=== PATIENT | female | born 1950 | race Caucasian/White ===

== ENCOUNTER 2017-09-23 11:11 | Outpatient (CLI) | payer MEDICARE, OTHER ==
[~2017-09-23] VITALS: Ht 167.6 cm; Wt 72.3 kg
[~2017-09-23 11:11] MED LIST: AML2.5T PO; BISO1TAB6 PO; CEPH500C PO; ESTR1TAB36 PO; ESTR2TAB PO; GLUC-203 PO; HYDR-3454 PO; HYDR-3812 PO; LOSA50TA36 PO; MULT-618 PO; OMG1KC PO; PRAV40TA2 PO; losartan PO
[2017-09-23] MEDS ORDERED: PRAV20TA3 PO (11:29)
[2017-09-23] MEDS ORDERED: ESTR2TAB PO (11:29)
[2017-09-23] MEDS ORDERED: CALC-823 PO (11:29)
[2017-09-23] MEDS ORDERED: AMLO2.5T PO (11:29)
[2017-09-23] MEDS ORDERED: BISO1TAB6 PO (11:29)
[2017-09-23] MEDS ORDERED: ESTR1TAB36 PO (11:29)
[2017-09-23 11:31] VITALS: BP 125/67
== END 2017-09-23 11:54 | disposition home or self-care (01) ==
LOC: PREOP 11:11
PROVIDERS: ATTEND Podiatrist Foot & Ankle Surgery
DX: Z01.818 Encounter for other preprocedural examination (principal); Z11.2 Encounter for screening for other bacterial diseases; M20.12 Hallux valgus (acquired), left foot; M21.622 Bunionette of left foot
CPT/HCPCS: 87081

== ENCOUNTER 2017-10-18 06:00 | Day surgery (SDC) | payer MEDICARE, OTHER ==
[~2017-10-18] VITALS: Ht 167.6 cm; Wt 72.3 kg
[~2017-10-18 06:00] MED LIST changes: +ACHD5005 PO; +AMLO2.5T PO; +CALC-823 PO; -HYDR-3812 PO; +PRAV20TA3 PO
[2017-10-18] MEDS ORDERED: ceFAZolin 1,000 MG (ANCEF) VIAL ONE (06:15)
[2017-10-18] MEDS ORDERED: NS (IVPB) 50 ML ONE (06:15)
[2017-10-18 06:41] VITALS: BP 108/82
[2017-10-18] MEDS ORDERED: ceFAZolin INJECTION 1,000 MG in NS (IVPB) 50 ML IV ONE (06:45)
[2017-10-18] MEDS: LACTATED RINGERS 1,000 ML IV PRN ×2 (06:46→08:45)
[2017-10-18] MEDS ORDERED: MIDAZOLAM 2 MG/2 ML (VERSED) VIAL ONE (07:05)
[2017-10-18] MEDS ORDERED: fentaNYL INJECTION 250 MCG/5 ML AMP ONE (07:06)
[2017-10-18] MEDS ORDERED: BUPIVACAINE 0.25% 30 ML (SENSORCAINE) VIAL ONE (07:24)
--- NOTE | 2017-10-18 07:43 | Progress Note-Pre Operative ---
Pre-Operative Progress Note H&P Reviewed The H&P was reviewed, patient examined and no changes noted. Date Seen by Provider: Oct 18, 2017 Time Seen by Provider: 07:43 Date H&P Reviewed: Oct 18, 2017 Time H&P Reviewed: 07:43 Pre-Operative Diagnosis: Hallux Valgus, Tailor's Bunion, Hypertrophic 2nd Metatarsal, all left foot MILTON CARREON DPM Oct 18, 2017 7:43 am
[2017-10-18] MEDS ORDERED: LIDOCAINE PF 2% 5 ML (XYLOCAINE) VIAL ONE (08:50)
[2017-10-18] MEDS ORDERED: ONDANSETRON 4 MG/2 ML (SDV) Z0FRAN ONE (08:50)
[2017-10-18] MEDS ORDERED: DEXAMETHASONE 10 MG/ML (DECADRON) 1 ML VIAL ONE ×2 (08:50→10:34)
[2017-10-18] MEDS ORDERED: proPOfol 200 MG/20 ML (DIPRIVAN) VIAL IV ONE (08:50)
[2017-10-18] MEDS ORDERED: SEVOFLURANE (ULTANE) 15 ML INHAL SOLN ONE (08:50)
[2017-10-18] MEDS ORDERED: LACTATED RINGERS 1,000 ML IV SCH (10:56)
--- NOTE | 2017-10-18 10:56 | Progress Note-Post Operative ---
Post-Operative Progess Note Surgeon (s)/Wildlife Biologist (s) Surgeon MILTON CARREON DPM Wildlife Biologist: none Pre-Operative Diagnosis Hallux Valgus, Tailor's Bunion, Hypertrophic 2nd Metatarsal, all left foot Post-Operative Diagnosis Same Procedure & Operative Findings Date of Procedure 10/18/17 Procedure Performed/Findings Modified Lapidus-Alan bunionectomy, Tailors bunionectomy, 2nd metatarsal osteotomy, all left foot Anesthesia Type General Estimated Blood Loss Estimated blood loss (mL): minimal Specimens/Packing Specimens Removed none MILTON CARREON DPM Oct 18, 2017 10:56 am
[2017-10-18] MEDS ORDERED: CEPH500C PO (10:58)
[2017-10-18] MEDS ORDERED: ACHD5005 PO (10:58)
[2017-10-18] MEDS ORDERED: ONDANSETRON 4 MG/2 ML (SDV) Z0FRAN IVP PRN ×2 (11:00→11:15)
[2017-10-18] MEDS ORDERED: HYDROcodone/APAP 5 MG/325 MG (LORTAB) TAB PO PRN (11:00)
[2017-10-18] MEDS ORDERED: morphine INJ 10 MG/ML 1ML (SYR OR VIAL) IVP PRN (11:15)
[2017-10-18] MEDS ORDERED: morphine INJ 4 MG/ML 1 ML (VIAL/SYRINGE) ONE (11:23)
[2017-10-18 11:45] VITALS: BP 148/76
[2017-10-18 12:15] VITALS: BP 146/76
--- NOTE | 2017-10-18 12:41 | Physical Therapy Progress Note ---
Therapy Progress Note Patient had surgery on opposite foot last year and has established FWW, w/c, etc. Both patient and family feel comfortable and declined PT intervention on this date. 1 visit BOSSMAN GOMES PT Oct 18, 2017 12:41
[2017-10-18 12:45] VITALS: BP 144/74
--- NOTE | 2017-10-18 12:57 | Diagnostic Imaging Report ---
INDICATION: Bunionectomy and arthrodesis. COMPARISON: None available. FINDINGS AND IMPRESSION: Multiple fluoroscopic images were obtained during first TMT arthrodesis, great toe bunionectomy, and fifth metatarsal bunionectomy. These demonstrate arthrodesis plate and screw fixation of the first TMT as well as a single cannulated cortical lag screw. A total of 10 seconds or fluoroscopy was utilized for this procedure performed by Dr. Gonzalez. Please see operative report for complete details. Dictated by: Dictated on workstation # [id number]
--- NOTE | 2017-10-18 13:35 | Diagnostic Imaging Report ---
INDICATION: Postop surgery of foot. COMPARISON: None. FINDINGS: Two radiographic views of the left foot were obtained and show postsurgical changes of prior hallux valgus correction. Orthopedic side plate and screws are seen traversing the first metatarsal and medial cuneiform. Osteotomy defect of the fifth distal metatarsal is also noted. Orthopedic screw is seen within the distal end of the second metatarsal. No unexpected radiopaque foreign bodies are seen. No acute fracture or dislocation is identified. IMPRESSION: 1. Postsurgical changes of the left foot as described above. No unexpected radiopaque foreign bodies. Dictated by: Dictated on workstation # [id number]
[2017-10-18 13:45] VITALS: BP 144/74
--- NOTE | 2017-10-18 20:52 | OPERATIVE REPORT ---
DATE OF SERVICE: 10/18/2017 SURGEON: Damaris Carreon DPM PREOPERATIVE DIAGNOSES: 1. Hallux abductovalgus with metatarsal primus varus, left foot. 2. Tailor's bunion, left foot. 3. Hypertrophic second metatarsal left foot. POSTOPERATIVE DIAGNOSES: 1. Hallux abductovalgus with metatarsal primus varus, left foot. 2. Tailor's bunion, left foot. 3. Hypertrophic second metatarsal left foot. PROCEDURE: 1. Modified Lapidus Alan bunionectomy, left. 2. Tailor's bunionectomy with fifth metatarsal osteotomy. 3. Second metatarsal osteotomy with screw fixation, left. WOUND CLASS: Clean. ANESTHESIA: General. HEMOSTASIS: Pneumatic thigh tourniquet at 250 mmHg. INDICATIONS: This 67-year-old female presents complaining of a painful left foot. Conservative therapy has met with unsatisfactory results and the patient is agreeable to surgical intervention after risks and complications were discussed at length. No guarantees were extended to the patient and she is willing to proceed. DESCRIPTION OF PROCEDURE: The patient was brought back to the operating table, placed in secure supine position. A general anesthetic was then induced. Appropriate timeout was performed. Pneumatic thigh tourniquet was placed on the left lower extremity over several layers of padding. The left foot was then prepped and draped in normal sterile manner. The left foot was then elevated, allowed to exsanguinate after which the tourniquet was inflated to 250 mmHg. Attention was then directed to the dorsal aspect of the left first metatarsal cuneiform joint where an approximately 5 cm longitudinal linear incision was created. The incision was deepened in the same plane with great care to identify and retract all vital neurovascular structures. Only necessary blood vessels were cauterized as encountered. The incision was deepened down to the capsular tissue where a longitudinal capsulotomy provided exposure to the first metatarsal medial cuneiform joint. Next, the articular cartilage was resected to the base of the first metatarsal and distal medial cuneiform. The bone cut was perpendicular to the long axis of the first metatarsal, to the medial cuneiform. It was perpendicular to the long axis of the second metatarsal. Once the articular cartilage was removed, excellent bony apposition was appreciated at this time. Temporary K wire fixation was applied and confirmed reduction of bunion deformity with intraoperative C-arm. Next, plate and screws were then applied utilizing a standard Lapidus plate for the gorilla system. The proximal screw was a 2.7 locking screw, 15 and 20 mm of length. The interfrag compression screw was a 3.5 of 38 mm of length. The distal screws were 2.7 locking screws of 18 and 16 mm of length and a nonlocking screw of 14 mm length. Excellent bony apposition and fixation was appreciated at this time, confirmed with intraoperative C-arm. The wound was flushed with copious amounts of normal saline. Attention was then directed to the dorsal aspect of the first metatarsophalangeal joint where a 5 cm longitudinal linear incision was created. The incision was deepened in the same plane with great care to identify and retract all vital neurovascular structures. Only the necessary blood vessels were cauterized as encountered. The incision was deepened down to the capsular tissue and a longitudinal capsulotomy was performed exposing the medial eminence to the first metatarsal head, which was resected utilizing a power sagittal saw. The wound was flushed after which plantar pressure was then applied noting there is retained lateral deviation to the hallux. Blunt dissection was carried out into the first intermetatarsal space where a lateral capsulorrhaphy was performed as well as a release of the conjoint tendon of the adductor hallucis and a release of the fibular sesamoidal ligament. There remained some lateral deviation. An Alan type osteotomy was then performed. Subperiosteal dissection was carried out to the diaphysis of the proximal phalanx where a wedge of bone was resected with the base medial and the lateral cortices held intact. Once this wedge of bone was resected, 2 co pilot holes were created to the dorsal medial aspect of the osteotomy with a 28-gauge monofilm wire, which was passed through these areas securing the osteotomy in a closed position. Excellent bony apposition and fixation was appreciated at this time. Attention was then directed to the dorsal aspect of the left second metatarsophalangeal joint where a 4 cm longitudinal linear incision was created. The incision was deepened down to the extensor davidson overlying the metatarsophalangeal joint where an incision was made longitudinally medial to the extensor digitorum longus tendon. This exposed the hypertrophic head of the second metatarsal. A Tanner type osteotomy was then performed. A power sagittal saw was utilized to create the osteotomy and the capital fragment was translocated proximally and fixated in its corrected position utilizing a 2.0 snap-off screw of 10 mm of length. Excellent bony apposition and fixation was appreciated at this time. The head of the second metatarsal was further contoured and smoothed with a rongeur and hand rasp. The wound was flushed with copious amounts of normal saline. Attention was then directed to the left fifth metatarsophalangeal joint where a 4 cm longitudinal linear incision was created. The incision was deepened in the same plane with great care to identify and retract all vital neurovascular structures. Only necessary blood vessels were cauterized as encountered. The incision was deepened down to the capsular tissue where a longitudinal capsulotomy was performed. The lateral eminence to the fifth metatarsal head was resected with a power sagittal saw. A power sagittal saw was also utilized to create a Chevron type osteotomy from lateral to medial at the surgical neck of the fifth metatarsal. The capital fragment was translocated medially and fixated in its corrected position with a 0.045 threaded K-wire driven from proximal dorsal to plantar distal across the osteotomy. The K-wire was cut flush with the dorsal aspect of the fifth metatarsal. The head of the fifth metatarsal was further contoured and smoothed with the power sagittal saw and power bur. The wounds were flushed once again with copious amounts of normal saline. Closure was then performed in layers. Deep closure was performed with 3-0 Vicryl, superficial with 4-0 Vicryl, skin closed with 4-0 Prolene in a horizontal mattress type stitch to all four incisions. Postoperative injection consisted of 20 mL of 0.25% Marcaine injected in a local infusion to the surgical site followed by 10 mg dexamethasone into the first intermetatarsal space. Postoperative dressing consisted of Betadine soaked Adaptic, sterile 4 x 4's, sterile Kerlix, all secured with a Coban wrap. The patient tolerated anesthesia and procedure well, was transported from the operating room to the recovery area with vital signs stable and vascular status intact to all digits of the left foot. Postoperative instructions were dispensed to the patient to be absolutely nonweightbearing left foot. She was given a prescription for Keflex and Vicodin. She is to follow up in my office in 10 days' period of time or sooner if necessary. Job ID: [id number] DocumentID: [id number] Dictated Date: 10/18/2017 11:10:24 Treater Date: 10/18/2017 20:51:31 Dictated By: DAMARIS CARREON DPM
== END 2017-10-18 13:45 | disposition home or self-care (01) ==
LOC: SDC 06:00
PROVIDERS: ATTEND Podiatrist Foot & Ankle Surgery
DX: M20.12 Hallux valgus (acquired), left foot (principal); M21.621 Bunionette of right foot; M89.372 Hypertrophy of bone, left ankle and foot; I10 Essential (primary) hypertension; E78.2 Mixed hyperlipidemia; Z79.899 Other long term (current) drug therapy
CPT/HCPCS: 73620

== ENCOUNTER → 2020-01-08 | Outpatient (CLI) | payer MEDICARE, OTHER ==
[~2020-01-08] MED LIST changes: -AMLO2.5T PO; +AMLO2.5T4 PO; +BISO-3 PO; -LOSA50TA36 PO; +LOSA50TA63 PO
--- NOTE | 2020-01-08 12:06 | Diagnostic Imaging Report ---
INDICATION: Chest nodule, palpable abnormality COMPARISON: None available TECHNIQUE: Targeted ultrasound of the right upper chest was performed on 01/08/2020 FINDINGS: No suspicious cystic or solid mass lesion. No focal fluid collection. No significant skin thickening. IMPRESSION: Unremarkable examination. In particular, no sonographic abnormality to correspond to the palpable abnormality within the right upper chest. If there remains clinical concern for this region, then further evaluation with MRI with contrast could be considered. Dictated by: Dictated on workstation # [id number]
== END ==
LOC: RAD 10:24
PROVIDERS: ATTEND Nurse Practitioner Family
DX: R22.2 Localized swelling, mass and lump, trunk (principal)
CPT/HCPCS: 76604

== ENCOUNTER 2020-11-02 05:28 | Outpatient (RCR) | payer MEDICARE, OTHER ==
[~2020-11-02] VITALS: Ht 169 cm; Wt 66.0 kg
[~2020-11-02 05:28] MED LIST changes: +MULT-1136 PO
== END 2020-11-02 14:16 | disposition home or self-care (01) ==
LOC: PREOP 05:28
PROVIDERS: ATTEND Internal Medicine
DX: Z01.812 Encounter for preprocedural laboratory examination (principal); Z12.11 Encounter for screening for malignant neoplasm of colon; Z20.822 Contact with and (suspected) exposure to COVID-19
CPT/HCPCS: 87635

== ENCOUNTER 2020-11-04 07:25 | Day surgery (SDC) | payer MEDICARE, OTHER ==
--- NOTE | 2020-10-29 07:27 | HISTORY AND PHYSICAL ---
DATE OF SERVICE: COLONOSCOPY HISTORY AND PHYSICAL DATE OF ADMISSION: 11/04/2020 HISTORY OF PRESENT ILLNESS: The patient is a 70-year-old white female referred by Dr. Hernandez for screening colonoscopy. I performed her second colonoscopy 10 years ago, at which time no evidence for neoplasia was identified with no other significant colonic abnormalities being noted. The patient reports no change in bowel habit. Denies bright red blood per rectum or melena and reports stable weights. PAST MEDICAL HISTORY: Significant for hypertension, hyperlipidemia with no known history for cardiovascular or cerebrovascular disease. PAST SURGICAL HISTORY: Significant for hysterectomy over 20 years ago with removal of a benign ovarian tumor with apparent bilateral salpingo-oophorectomy. FAMILY HISTORY: She is not aware of any family history for colon cancer or GI tract malignancy. Her mother did pass away at the age of 83 and had history of colon polyps reportedly benign. PHYSICAL EXAMINATION: GENERAL: Reveals a white female appeared to be in no acute distress. VITAL SIGNS: Blood pressure 130/72, weight 151 pounds, unchanged from her office weight 10 years ago. NECK: Revealed no JVD, adenopathy or bruits. CHEST: Clear to auscultation. CARDIOVASCULAR: Reveals a regular rate and rhythm without murmur, S3 or S4. ABDOMEN: Soft, supple without mass, organomegaly or tenderness. EXTREMITIES: Reveal no cyanosis, clubbing or edema. ASSESSMENT AND PLAN: The patient will be set up for screening colonoscopy. She had difficulty with her prep in the past and requested MiraLax. I discussed the importance of drinking it as quickly as possible and we will split the dose into two aliquots given the day before as we plan on doing the patient under anesthesia as she reports increased issues with bowel sensitivity and request to be not completely out for the procedure. She is to abstain from aspirin and nonsteroidal medications in the interim. Thank you for the referral of this pleasant lady. Job ID: [id number] DocumentID: [id number] Dictated Date: 10/27/2020 11:13:33 Work Measurement Engineer Date: 10/27/2020 11:32:39 Dictated By: RUTH RING MD
[~2020-11-04] VITALS: Ht 169 cm; Wt 66.0 kg
[2020-11-04] MEDS ORDERED: LACTATED RINGERS 1,000 ML IV ONE (07:40)
[2020-11-04] MEDS ORDERED: LACTATED RINGERS 1,000 ML IV STA (07:40)
[2020-11-04] MEDS ORDERED: LIDOCAINE JELLY 2% 6 ML SYRINGE MM PRN (07:45)
[2020-11-04 07:56] VITALS: BP 132/83
--- NOTE | 2020-11-04 08:11 | Pre-Op Note & Conscious Sedat ---
Pre-Operative Progress Note H&P Reviewed The H&P was reviewed, patient examined and no changes noted. Date H&P Reviewed: Nov 04, 2020 Time H&P Reviewed: 08:11 Conscious Sedation Pre-Proced ASA Score 2 For ASA 3 and 4: Consider anesthesia and medical clearance. Also, for patients with a history of failed moderate sedation consider anesthesia. Airway Lungs Heart ASA score ASA 1: a normal healthy patient ASA 2: a patient with a mild systemic disease (mid diabetes, controlled hypertension, obesity ASA 3: a patient with a severe systemic disease that limits activity (angina, COPD, prior Myocardial infarction) ASA 4: a patient with an incapacitating disease that is a constant threat to life (CHF, renal failure) ASA 5: a moribund patient not expected to survive 24 hrs. (ruptured aneurysm) ASA 6: a declared brain- patient whose organs are being harvested. For emergent operations, add the letter E after the classification Mallampati Classification Grade 2 Sedation Plan Analgesia, Amnesia, Plan communicated to team members, Discussed options with patient/fam, Discussed risks with patient/fam The patient is an appropriate candidate to undergo the planned procedure, sedation, and anesthesia. The patient immediately re-assessed prior to indication. RUTH RING MD Nov 04, 2020 08:11
[2020-11-04] MEDS ORDERED: PROPOFOL INJECTION 50 ML IV ONE (08:30)
[2020-11-04] MEDS ORDERED: MIDAZOLAM 2 MG/2 ML (VERSED) VIAL ONE (08:30)
[2020-11-04 09:15] VITALS: BP 76/46
[2020-11-04 09:20] VITALS: BP 87/53
[2020-11-04 09:25] VITALS: BP 109/61
[2020-11-04 10:10] VITALS: BP 124/66
[2020-11-04 10:48] VITALS: BP 124/66
--- NOTE | 2020-11-04 11:20 | Anesthesia-General Post-Op ---
MAC Patient Condition Mental Status/LOC: Same as Preop Cardiovascular: Satisfactory Nausea/Vomiting: Absent Respiratory: Satisfactory Pain: Controlled Complications: Absent Post Op Complications Complications None Follow Up Care/Instructions Patient Instructions None needed. Anesthesiology Discharge Order Discharge Order Patient is doing well, no complaints, stable vital signs, no apparent adverse anesthesia problems. No complications reported per nursing. GAVIN RODRIGUEZ CRNA Nov 04, 2020 11:20
--- NOTE | 2020-11-04 13:32 | OPERATIVE REPORT ---
DATE OF SERVICE: COLONOSCOPY SUMMARY INDICATION FOR THE PROCEDURE: Screening colonoscopy. DESCRIPTION OF PROCEDURE: The patient was placed in the left lateral decubitus position. Prior to undergoing colonoscopy, digital rectal evaluation was performed. Anal sphincter tone was normal and the perianal reflexes intact. No abnormalities were noted on digital inspection of anal canal or distal rectal vault. The colonoscope was then inserted into the rectum and under direct visualization advanced to cecum. The cecum was identified by identification of the ileocecal valve and cecal strap. Photographic documentation was obtained. Careful inspection was made as the colonoscope withdrawn. The quality of prep was good. FINDINGS: There was no evidence for internal or external hemorrhoids and the rectum was unremarkable. Present in the mid sigmoid colon was a diminutive 4 mm sessile polyp that was photographed and biopsied and ablated with no subsequent blood loss. Moderate diverticular disease was noted in the sigmoid colon. Several ascending colonic diverticulum were noted as well without evidence for diverticulitis. There was moderate haustral hypertrophy as well. The descending colon, splenic flexure, and transverse colon were unremarkable. The ascending colon other than several diverticulum was unremarkable as was the cecum. ASSESSMENT: One diminutive polyp was removed from the mid sigmoid colon as long as there are no surprise on histopathology report may considering this patient's age and moderate diverticular disease as long as there is no family history for colon cancer, we would not advocate future screening colonoscopy. I thank you for the referral of this pleasant lady. Job ID: [id number] DocumentID: [id number] Dictated Date: 11/04/2020 09:21:29 Cook Ice Cream Date: 11/04/2020 13:31:19 Dictated By: RUTH RING MD
== END 2020-11-04 10:48 | disposition home or self-care (01) ==
LOC: ENDO 07:25
PROVIDERS: ATTEND Internal Medicine
DX: Z12.11 Encounter for screening for malignant neoplasm of colon (principal); D12.5 Benign neoplasm of sigmoid colon; K57.30 Diverticulosis of large intestine without perforation or abscess without bleeding; I10 Essential (primary) hypertension; E78.5 Hyperlipidemia, unspecified; Z79.899 Other long term (current) drug therapy; Z83.71 Family history of colonic polyps
CPT/HCPCS: 88305

== ENCOUNTER 2020-12-05 20:48 | Emergency (ER) | payer MEDICARE, OTHER ==
[~2020-12-05] VITALS: Ht 167.7 cm; Wt 68.0 kg
[2020-12-05] MEDS ORDERED: cloNIDine 0.1 MG (CATAPRES) TAB ONE (21:09)
[2020-12-05] MEDS ORDERED: cloNIDine 0.1 MG (CATAPRES) TAB PO ONE ×2 (21:15→22:15)
--- NOTE | 2020-12-05 21:19 | ED Cardiac General ---
History of Present Illness General Chief Complaint: Cardiac/General Problems Stated Complaint: ELEV BP 185/87 Source: patient Exam Limitations: no limitations History of Present Illness Date Seen by Provider: Dec 05, 2020 Time Seen by Provider: 21:17 Initial Comments To ER by private vehicle with reports of high blood pressure. She checked her blood pressure this evening and found it to be 116 systolic. She decided not to take her evening dose of blood pressure medication because she did not want to drop her blood pressure too low. About an hour later she then began to have some funny sensations in her head and chest. She took her blood pressure and it was 159. She took her blood pressure medication at 7 PM. Shortly after that her blood pressure sara to 179. Just before arrival here it was 189systolic. She also had some mumbling incoherent speech, general weakness and shakiness according to the . Timing/Duration: changing over time Severity: moderate Prior CP/Workup: no prior chest pain NTG SL SENIOR INFORMATICA DEVELOPER: No ASA po SENIOR INFORMATICA DEVELOPER: No Allergies and Home Medications Allergies Coded Allergies: No Known Drug Allergies (Unverified , 09/23/17) Home Medications Amlodipine Besylate 2.5 Mg Tablet, 2.5 MG PO DAILY, (Reported) Bisoprolol Fumarate/Hctz 1 Each Tablet, 1 EACH PO DAILY, (Reported) Calcium Carbonate 500 Mg Tablet, 500 MG PO DAILY, (Reported) Estradiol 2 Mg Tablet, 2 MG PO DAILY, (Reported) Losartan Potassium 50 Mg Tablet, 50 MG PO DAILY, (Reported) Multivitamin 1 Each Tablet, 1 EACH PO DAILY, (Reported) Kane 3 Polyunsat Fatty Acids 1,000 Mg Cap, 1,000 MG PO DAILY, (Reported) Pravastatin Sodium 20 Mg Tablet, 20 MG PO DAILY, (Reported) Patient Home Medication List Home Medication List Reviewed: Yes Review of Systems Review of Systems Constitutional: see HPI EENTM: No Symptoms Reported Respiratory: No Symptoms Reported Cardiovascular: See HPI; Denies Chest Pain, Denies Edema Gastrointestinal: See HPI Genitourinary: No Symptoms Reported Musculoskeletal: no symptoms reported Skin: no symptoms reported Psychiatric/Neurological: No Symptoms Reported Endocrine: No Symptoms Reported Past Qnfkupo-Jeqbew-Tjwudl Hx Patient Social History 2nd Hand Smoke Exposure: No Recent Hopitalizations: No Immunizations Up To Date Tetanus Booster (TDap): Unknown Date of Pneumonia Vaccine: Jul 30, 2016 Date of Influenza Vaccine: Jul 29, 2020 Seasonal Allergies Seasonal Allergies: No Past Medical History Surgeries: Yes (RIGHT FOOT, LEFT FOOT) Gallbladder, Hysterectomy, Tubal Ligation Respiratory: No Cardiac: Yes High Cholesterol, Hypertension Neurological: No Reproductive Disorders: No 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 7.0oz. [id number]; 23.10 BMI Method:Stated General Appearance: No Apparent Distress, WD/WN, Anxious Neck: Full Range of Motion, Normal Inspection Respiratory: Lungs Clear, Normal Breath Sounds, No Accessory Muscle Use, No Respiratory Distress Cardiovascular: Regular Rate, Rhythm, Normal Peripheral Pulses Gastrointestinal: Normal Bowel Sounds, Non Tender, Soft Extremity: Normal Capillary Refill, Normal Inspection Neurologic/Psychiatric: Alert, Oriented x3 Skin: Normal Color, Warm/Dry, Other (There is a circular area of slight erythema, scaling beneath the right breast. Not a vesicular rash, does not appear zoster. Appears like an intertrigo/candidal infection.) Progress/Results/Core Measures Results/Orders Lab Results Laboratory Tests Test 12/05/20 21:00 12/05/20 21:05 Range/Units Sodium Level 140 135-145 MMOL/L Potassium Level 3.5 L 3.6-5.0 MMOL/L Chloride Level 104 98-107 MMOL/L Carbon Dioxide Level 22 21-32 MMOL/L Anion Gap 14 5-14 MMOL/L Blood Urea Nitrogen 20 H 7-18 MG/DL Creatinine 0.90 0.60-1.30 MG/DL Estimat Glomerular Filtration Rate > 60 BUN/Creatinine Ratio 22 Glucose Level 204 H 70-105 MG/DL Calcium Level 9.1 8.5-10.1 MG/DL Corrected Calcium 8.8 8.5-10.1 MG/DL Total Bilirubin 0.3 0.1-1.0 MG/DL Aspartate Amino Transf (AST/SGOT) 18 5-34 U/L Alanine Aminotransferase (ALT/SGPT) 24 0-55 U/L Alkaline Phosphatase 82 40-136 U/L Troponin I < 0.028 <0.028 NG/ML Total Protein 7.7 6.4-8.2 GM/DL Albumin 4.4 3.2-4.5 GM/DL White Blood Count 7.7 4.3-11.0 10^3/uL Red Blood Count 5.00 3.80-5.11 10^6/uL Hemoglobin 15.5 11.5-16.0 g/dL Hematocrit 46 35-52 % Mean Corpuscular Volume 92 80-99 fL Mean Corpuscular Hemoglobin 31 25-34 pg Mean Corpuscular Hemoglobin Concent 34 32-36 g/dL Red Cell Distribution Width 14.0 10.0-14.5 % Platelet Count 294 130-400 10^3/uL Mean Platelet Volume 9.1 9.0-12.2 fL Immature Granulocyte % (Auto) 0 % Neutrophils (%) (Auto) 59 42-75 % Lymphocytes (%) (Auto) 32 12-44 % Monocytes (%) (Auto) 8 0-12 % Eosinophils (%) (Auto) 1 0-10 % Basophils (%) (Auto) 1 0-10 % Neutrophils # (Auto) 4.5 1.8-7.8 10^3/uL Lymphocytes # (Auto) 2.5 1.0-4.0 10^3/uL Monocytes # (Auto) 0.6 0.0-1.0 10^3/uL Eosinophils # (Auto) 0.0 0.0-0.3 10^3/uL Basophils # (Auto) 0.0 0.0-0.1 10^3/uL Immature Granulocyte # (Auto) 0.0 0.0-0.1 10^3/uL My Orders Orders - MELLY PEREZ APRN Clonidine Tablet (Catapres Tablet) (12/05/20 21:09) Troponin I (12/05/20 21:14) Ekg Tracing (12/05/20 21:14) Cbc With Automated Diff (12/05/20 21:14) Comprehensive Metabolic Panel (12/05/20 21:14) Clonidine Tablet (Catapres Tablet) (12/05/20 21:15) Potassium Chloride (Tablet) (K Dur Table (12/05/20 22:00) Magnesium Oxide Tablet (Mag Ox Tablet) (12/05/20 22:00) Betamethasone/Clotrimazole Crm (Lotrison (12/06/20 09:00) Medications Given in ED Current Medications Medications Dose Ordered Sig/Nicolasa Route Start Time Stop Time Status Last Admin Dose Admin Clonidine HCl 0.1 mg ONCE ONCE PO 12/05/20 21:15 12/05/20 21:17 DC 12/05/20 21:23 0.1 MG Vital Signs/I&O 12/05/20 20:55 Temp 36.7 Pulse 74 Resp 18 B/P (MAP) 157/97 (117) Pulse Ox 96 O2 Delivery Room Air Departure Impression Primary Impression: Labile hypertension Disposition: HOME, SELF-CARE Condition: Stable Departure-Patient Inst. Decision time for Depature: 21:45 Referrals: PIETRO HERNANDEZ MD (PCP/Family) Primary Care Physician Patient Instructions: High Blood Pressure (DC) Add. Discharge Instructions: 1. Call Dr Hernandez tomorrow to make an appointment to be seen. Return to ER for any worsening. All discharge instructions reviewed with patient and/or family. Voiced unde rstanding. Copy Copies To 1: PIETRO HERNANDEZ MD, PETER J APRN Dec 05, 2020 21:19
[2020-12-05 21:28] LABS: BASOPHILS % (AUTO) 1 % (0-10); EOSINOPHILS % (AUTO) 1 % (0-10); HEMATOCRIT 46 % (35-52); HEMOGLOBIN 15.5 g/dL (11.5-16.0); LYMPHOCYTES # (AUTO) 2.5 10^3/uL (1.0-4.0); LYMPHOCYTES % (AUTO) 32 % (12-44); MEAN CORPUSCULAR HEMOGLOBIN 31 pg (25-34); MEAN CORPUSCULAR HGB CONC 34 g/dL (32-36); MEAN CORPUSCULAR VOLUME 92 fL (80-99); MEAN PLATELET VOLUME 9.1 fL (9.0-12.2); MONOCYTES # (AUTO) 0.6 10^3/uL (0.0-1.0); MONOCYTES % (AUTO) 8 % (0-12); NEUTROPHILS # (AUTO) 4.5 10^3/uL (1.8-7.8); NEUTROPHILS % (AUTO) 59 % (42-75); PLATELET COUNT 294 10^3/uL (130-400); WHITE BLOOD COUNT 7.7 10^3/uL (4.3-11.0)
[2020-12-05 21:33] LABS: ALBUMIN 4.4 GM/DL (3.2-4.5); CHLORIDE 104 MMOL/L (98-107); POTASSIUM 3.5 MMOL/L (3.6-5.0); SODIUM 140 MMOL/L (135-145)
[2020-12-05 21:34] LABS: CALCIUM 9.1 MG/DL (8.5-10.1)
[2020-12-05 21:35] LABS: GLUCOSE 204 MG/DL (70-105)
[2020-12-05 21:36] LABS: TOTAL PROTEIN 7.7 GM/DL (6.4-8.2)
[2020-12-05 21:37] LABS: CARBON DIOXIDE 22 MMOL/L (21-32)
[2020-12-05 21:44] LABS: ALANINE AMINOTRANSFERASE 24 U/L (0-55); ALKALINE PHOSPHATASE 82 U/L (40-136); BILIRUBIN,TOTAL 0.3 MG/DL (0.1-1.0); BUN/CREATININE RATIO 22; GFR ESTIMATED > 60
[2020-12-05] MEDS ORDERED: KCL 20 MEQ TAB (K-DUR) PO ONE (22:00)
[2020-12-05] MEDS ORDERED: MAGNESIUM OXIDE (MAG-OX)400 MG TAB PO ONE (22:00)
[2020-12-05] MEDS ORDERED: BETAMETHASONE/CLOTRIM CREAM (LOTRISONE) 45 GM TP ONE (22:02)
[2020-12-05 22:22] VITALS: BP 144/79
[2020-12-06] MEDS ORDERED: BETAMETHASONE/CLOTRIM CREAM (LOTRISONE) 45 GM TP SCH (09:00)
== END 2020-12-05 22:22 | disposition home or self-care (01) ==
LOC: EDUNIT# 20:48 → ER 20:50
DX: I10 Essential (primary) hypertension (principal); F41.9 Anxiety disorder, unspecified; E78.00 Pure hypercholesterolemia, unspecified
CPT/HCPCS: 36415; 80053; 84484; 85025; 93005

== ENCOUNTER 2020-12-06 21:03 | Emergency (ER) | payer MEDICARE, OTHER ==
[~2020-12-06] VITALS: Ht 162.6 cm; Wt 68.0 kg
[2020-12-06] MEDS ORDERED: ONDANSETRON 4 MG (ZOFRAN) ORAL DISSOLVE TAB ONE (21:16)
--- NOTE | 2020-12-06 21:37 | ED Chest Pain ---
General Chief Complaint: Cardiac/General Problems Stated Complaint: HIGH BLOOD PRESSURE Source: patient Exam Limitations: no limitations History of Present Illness Date Seen by Provider: Dec 06, 2020 Time Seen by Provider: 21:11 Initial Comments Patient presents ER with her significant other and chief complaint that again tonight about 3 hours prior to arrival she started feeling queasy with a uneasy feeling in her epigastric region as well as some nausea but no vomiting. She had an episode of diarrhea earlier tonight and one yesterday. She had the same symptoms yesterday and presented to the ER and had a cardiac work-up with EKG and labs that was unremarkable and told to go home with clonidine. She already has 4 different medications for blood pressure none of which are maxed out. She says she is been taking them. What concerned her is she saw her blood pressure was elevated 190 systolic over 110 diastolic. This happened again tonight so per the ER practitioner's instructions from last night she took a dose of clonidine 0.1 mg and by the time she arrived here approximately 1 hour later she says her symptoms are resolving. She is not having any fever or sick contacts. No recent travel. No personal history of coronary disease but she does have high blood pressure. She does not smoke or use stimulant medications. No significant familial risk factors. Her mother and father both had extensive coronary disease that presented in their 70s. She does take a statin for hyperlipidemia and denies a history of diabetes. Allergies and Home Medications Allergies Coded Allergies: No Known Drug Allergies (Unverified , 09/23/17) Home Medications Amlodipine Besylate 2.5 Mg Tablet, 2.5 MG PO DAILY, (Reported) Bisoprolol Fumarate/Hctz 1 Each Tablet, 1 EACH PO DAILY, (Reported) Calcium Carbonate 500 Mg Tablet, 500 MG PO DAILY, (Reported) Estradiol 2 Mg Tablet, 2 MG PO DAILY, (Reported) Losartan Potassium 50 Mg Tablet, 50 MG PO DAILY, (Reported) Multivitamin 1 Each Tablet, 1 EACH PO DAILY, (Reported) [place] 3 Polyunsat Fatty Acids 1,000 Mg Cap, 1,000 MG PO DAILY, (Reported) Pravastatin Sodium 20 Mg Tablet, 20 MG PO DAILY, (Reported) Patient Home Medication List Home Medication List Reviewed: Yes Review of Systems Review of Systems Constitutional: No chills, No fever EENTM: No Blurred Vision, No Double Vision Respiratory: Denies Cough, Denies Shortness of Air Cardiovascular: See HPI, Chest Pain, Edema Gastrointestinal: Denies Abdomen Distended, Denies Abdominal Pain Genitourinary: Denies Burning, Denies Discharge Musculoskeletal: No back pain, No joint pain All Other Systems Reviewed Negative Unless Noted: Yes Past Ftencfl-Wkmvjj-Polnbt Hx Patient Social History Alcohol Use: Denies Use Smoking Status: Never a Smoker 2nd Hand Smoke Exposure: No Recent Hopitalizations: No Immunizations Up To Date Tetanus Booster (TDap): Unknown Date of Pneumonia Vaccine: Jul 30, 2016 Date of Influenza Vaccine: Jul 29, 2020 Seasonal Allergies Seasonal Allergies: No Past Medical History Surgeries: Yes (RIGHT FOOT, LEFT FOOT) Gallbladder, Hysterectomy, Tubal Ligation Respiratory: No Cardiac: Yes High Cholesterol, Hypertension Neurological: No Reproductive Disorders: No 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 7.0oz. 72.045471op; 24.00 BMI Method:Stated General Appearance: No Apparent Distress, WD/WN HEENT: PERRL/EOMI, Pharynx Normal, Moist Mucous Membranes Neck: Full Range of Motion, Normal Inspection Respiratory: Lungs Clear, Normal Breath Sounds, No Accessory Muscle Use, No Respiratory Distress Cardiovascular: Regular Rate, Rhythm, No Edema Gastrointestinal: Normal Bowel Sounds, No Organomegaly, Non Tender, Soft Extremity: Normal Capillary Refill, Normal Inspection, No Pedal Edema Neurologic/Psychiatric: Alert, Oriented x3 Skin: Normal Color, Warm/Dry Progress/Results/Core Measures Results/Orders Lab Results Laboratory Tests Test 12/06/20 21:50 12/06/20 23:45 Range/Units White Blood Count 9.2 4.3-11.0 10^3/uL Red Blood Count 4.82 3.80-5.11 10^6/uL Hemoglobin 14.7 11.5-16.0 g/dL Hematocrit 45 35-52 % Mean Corpuscular Volume 93 80-99 fL Mean Corpuscular Hemoglobin 31 25-34 pg Mean Corpuscular Hemoglobin Concent 33 32-36 g/dL Red Cell Distribution Width 13.9 10.0-14.5 % Platelet Count 273 130-400 10^3/uL Mean Platelet Volume 9.0 9.0-12.2 fL Immature Granulocyte % (Auto) 0 % Neutrophils (%) (Auto) 65 42-75 % Lymphocytes (%) (Auto) 24 12-44 % Monocytes (%) (Auto) 9 0-12 % Eosinophils (%) (Auto) 0 0-10 % Basophils (%) (Auto) 1 0-10 % Neutrophils # (Auto) 6.0 1.8-7.8 10^3/uL Lymphocytes # (Auto) 2.2 1.0-4.0 10^3/uL Monocytes # (Auto) 0.8 0.0-1.0 10^3/uL Eosinophils # (Auto) 0.0 0.0-0.3 10^3/uL Basophils # (Auto) 0.1 0.0-0.1 10^3/uL Immature Granulocyte # (Auto) 0.0 0.0-0.1 10^3/uL Prothrombin Time 13.1 12.2-14.7 SEC INR Comment 1.0 0.8-1.4 Activated Partial Thromboplast Time 31 24-35 SEC Sodium Level 141 135-145 MMOL/L Potassium Level 4.3 3.6-5.0 MMOL/L Chloride Level 106 98-107 MMOL/L Carbon Dioxide Level 21 21-32 MMOL/L Anion Gap 14 5-14 MMOL/L Blood Urea Nitrogen 18 7-18 MG/DL Creatinine 0.81 0.60-1.30 MG/DL Estimat Glomerular Filtration Rate > 60 BUN/Creatinine Ratio 22 Glucose Level 130 H 70-105 MG/DL Calcium Level 9.1 8.5-10.1 MG/DL Corrected Calcium 8.9 8.5-10.1 MG/DL Magnesium Level 1.9 1.6-2.4 MG/DL Total Bilirubin 0.4 0.1-1.0 MG/DL Aspartate Amino Transf (AST/SGOT) 19 5-34 U/L Alanine Aminotransferase (ALT/SGPT) 23 0-55 U/L Alkaline Phosphatase 74 40-136 U/L Myoglobin 25.6 10.0-92.0 NG/ML Troponin I < 0.028 < 0.028 <0.028 NG/ML Total Protein 7.4 6.4-8.2 GM/DL Albumin 4.3 3.2-4.5 GM/DL My Orders Orders - KALIN JIMENEZ Ondansetron Oral Dissolve Tab (Zofran (12/06/20 21:16) Cbc With Automated Diff (12/06/20 21:34) Magnesium (12/06/20 21:34) Chest 1 View, Ap/Pa Only (12/06/20 21:34) Ekg Tracing (12/06/20 21:34) Comprehensive Metabolic Panel (12/06/20 21:34) Myoglobin Serum (12/06/20 21:34) Protime With Inr (12/06/20 21:34) Partial Thromboplastin Time (12/06/20 21:34) O2 (12/06/20 21:34) Monitor-Rhythm Ecg Trace Only (12/06/20 21:34) Lipid Panel (12/07/20 06:00) Ed Iv/Invasive Line Start (12/06/20 21:34) Aspirin Chewable Tablet (Baby Aspirin Ch (12/06/20 21:45) Ondansetron Oral Dissolve Tab (Zofran (12/06/20 22:15) Troponin I (12/06/20 21:50) Troponin I (12/06/20 23:45) Medications Given in ED Current Medications Medications Dose Ordered Sig/Nicolasa Route Start Time Stop Time Status Last Admin Dose Admin Aspirin 243 mg ONCE ONCE PO 12/06/20 21:45 12/06/20 21:46 DC 12/06/20 21:50 243 MG Ondansetron HCl 4 mg ONCE ONCE PO 12/06/20 22:15 12/06/20 22:16 DC 12/06/20 21:21 4 MG Vital Signs/I&O 12/06/20 21:11 Temp 36.4 Pulse 74 Resp 18 B/P (MAP) 167/87 (113) Pulse Ox 96 O2 Delivery Room Air Progress Progress Note #1: Time: 21:44 Progress Note There is some concern that her anxiety and uneasy chest feeling could be from atypical angina. She took the clonidine about an hour to an hour and a half before coming to the ER and her symptoms are melting and her blood pressure is following. Viral illness is also possible. We will get an EKG put her on the monitor and check some labs for atypical angina and then consult with Dr. Brayd. Her heart score if we consider this moderately suspicious would be 3-4 points with a normal troponin. We will consult with cardiology and see if he wants to observe her overnight on the monitor or follow-up in the clinic. Since she was here yesterday if she is not having any progression of symptoms or lab findings it may be reasonable to follow her up outpatient. Progress Note #2: Time: 22:54 Progress Note Discussed the case with Dr. Brady and that the patient symptoms resolved within an hour of taking clonidine. Her blood pressure has been good around 140s over 80s. Certainly is a component of anxiety however atypical angina has not been ruled out. Heart score is [address] Brady says if she is still having no symptoms and a 2-hour troponin is negative he would be happy to see her first thing tomorrow morning in the clinic. However if she would prefer or if her symptoms return she may stay overnight. Repeat troponin 2345. Initial ECG Impression Date: Dec 06, 2020 Initial ECG Impression Time: 22:04 Initial ECG Rate: 59 Initial ECG Rhythm: Normal Sinus Initial ECG Intervals: Normal Initial ECG Impression: Normal Initial ECG Comparisson: No Previous ECG Available Diagnostic Imaging Diagonstic Imaging: Xray Plain Films/CT/US/NM/MRI: chest Comments Technically adequate 1 view chest x-ray demonstrating no acute cardiopulmonary process. Reviewed: Reviewed by Me Departure Impression Primary Impression: Chest discomfort Additional Impression: Labile hypertension Disposition: 01 HOME, SELF-CARE Condition: Improved Departure-Patient Inst. Decision time for Depature: 00:27 Referrals: PIETRO ASH MD (PCP/Family) Primary Care Physician JACKELINE BRADY MD FACP FAC CCDS Patient Instructions: Angina (DC) Add. Discharge Instructions: Tomorrow morning after a call Dr. Brady's clinic and request follow-up same day. Explained that you were seen in the ER and the ER physician spoke to Dr. Brady. If you start to have chest pain then please return to the nearest ER. All discharge instructions reviewed with patient and/or family. Voiced understanding. Copy Copies To 1: JACKELINE BRADY MD FACP FAC CCDS KALIN JIMENEZ Dec 06, 2020 21:37
[2020-12-06] MEDS ORDERED: ASPIRIN 81 MG CHEW (CHILDREN'S ASA) PO ONE (21:45)
[2020-12-06 22:06] LABS: BASOPHILS # (AUTO) 0.1 10^3/uL (0.0-0.1); BASOPHILS % (AUTO) 1 % (0-10); EOSINOPHILS % (AUTO) 0 % (0-10); HEMATOCRIT 45 % (35-52); HEMOGLOBIN 14.7 g/dL (11.5-16.0); LYMPHOCYTES # (AUTO) 2.2 10^3/uL (1.0-4.0); LYMPHOCYTES % (AUTO) 24 % (12-44); MEAN CORPUSCULAR HEMOGLOBIN 31 pg (25-34); MEAN CORPUSCULAR HGB CONC 33 g/dL (32-36); MEAN CORPUSCULAR VOLUME 93 fL (80-99); MONOCYTES # (AUTO) 0.8 10^3/uL (0.0-1.0); MONOCYTES % (AUTO) 9 % (0-12); NEUTROPHILS % (AUTO) 65 % (42-75); PLATELET COUNT 273 10^3/uL (130-400); WHITE BLOOD COUNT 9.2 10^3/uL (4.3-11.0)
[2020-12-06 22:14] LABS: ALBUMIN 4.3 GM/DL (3.2-4.5); CHLORIDE 106 MMOL/L (98-107); POTASSIUM 4.3 MMOL/L (3.6-5.0); SODIUM 141 MMOL/L (135-145)
[2020-12-06] MEDS ORDERED: ONDANSETRON 4 MG (ZOFRAN) ORAL DISSOLVE TAB PO ONE (22:15)
[2020-12-06 22:16] LABS: CALCIUM 9.1 MG/DL (8.5-10.1)
[2020-12-06 22:17] LABS: GLUCOSE 130 MG/DL (70-105); PROTHROMBIN TIME PATIENT 13.1 SEC (12.2-14.7); TOTAL PROTEIN 7.4 GM/DL (6.4-8.2)
[2020-12-06 22:18] LABS: CARBON DIOXIDE 21 MMOL/L (21-32)
[2020-12-06 22:19] LABS: BILIRUBIN,TOTAL 0.4 MG/DL (0.1-1.0)
[2020-12-06 22:20] LABS: ALKALINE PHOSPHATASE 74 U/L (40-136); CREATININE SERUM 0.81 MG/DL (0.60-1.30); GFR ESTIMATED > 60
[2020-12-06 22:21] LABS: BUN/CREATININE RATIO 22
[2020-12-06 22:23] LABS: ALANINE AMINOTRANSFERASE 23 U/L (0-55); MAGNESIUM 1.9 MG/DL (1.6-2.4)
[2020-12-07 00:32] VITALS: BP 110/67
--- NOTE | 2020-12-07 06:09 | Diagnostic Imaging Report ---
INDICATION: Chest pain. FINDINGS: Portable chest. The lungs are well-aerated and clear. The heart is not enlarged. No pulmonary edema. No hilar adenopathy. No pneumothorax or pleural effusion. No bony abnormalities. IMPRESSION: Normal portable chest Dictated by: Dictated on workstation # [id number]
== END 2020-12-07 00:32 | disposition home or self-care (01) ==
LOC: EDUNIT# 21:03 → ER 21:05
DX: R07.89 Other chest pain (principal); I10 Essential (primary) hypertension; E78.00 Pure hypercholesterolemia, unspecified
CPT/HCPCS: 36415; 71045; 80053; 83735; 83874; 84484; 85025; 85610; 85730; 93005; 93041

== ENCOUNTER → 2020-12-12 | Outpatient (CLI) | payer MEDICARE, OTHER | LOC: CARD 11:25 | PROVIDERS: ATTEND Internal Medicine Cardiovascular Disease | DX: R07.89 Other chest pain (principal) | CPT/HCPCS: 93306 ==

== ENCOUNTER → 2020-12-13 | Outpatient (CLI) | payer MEDICARE, OTHER ==
[~2020-12-13] VITALS: Ht 167 cm; Wt 66.0 kg
[~2020-12-13] MED LIST changes: +CATHETER FLUSH 10 ML SYR IV PRN; +REGADENOSON 0.4 MG/5 ML SYR (LEXISCAN) IV ONE
[2020-12-13 09:14] VITALS: BP 171/54
--- NOTE | 2020-12-13 11:44 | STRESS TEST ---
DATE OF SERVICE: 12/13/2020 RESTING AND POST REGADENOSON TECHNETIUM-99M TETROFOSMIN SPECT CT IMAGING ORDERING PHYSICIAN: Dr. Brady. PRIMARY PHYSICIAN: Dr. Hernandez. CLINICAL DIAGNOSIS: Chest discomfort. Baseline images were carried out after injection of 10.53 mCi of technetium-99m Tetrofosmin. This was followed by 0.4 mg regadenoson and 29.2 mCi of technetium-99m Tetrofosmin for stress imaging. The electrocardiogram showed sinus rhythm with occasional isolated premature ventricular contraction. The electrocardiogram did not change significantly with regadenoson infusion. The patient tolerated the procedure well. Review of images at rest and following stress does not indicate any significant perfusion defects consistent with myocardial ischemia or infarction. Gated images show normal global left ventricular systolic function with normal regional wall motion. Left ventricular ejection fraction is calculated to be 76%. Left ventricular end diastolic volume is 31 mL. TID is absent (0.98). CONCLUSIONS: 1. No evidence of any significant myocardial ischemia or infarction on this study. 2. Normal regional wall motion. 3. Normal to hyperdynamic left ventricular systolic function with a calculated ejection fraction of 76%. Job ID: [id number] DocumentID: [id number] Dictated Date: 12/13/2020 11:25:35 Mental Tester Date: 12/13/2020 11:43:40 Dictated By: JACKELINE BRADY MD, MA, FACP, FACC,
== END ==
LOC: CARD 07:34
PROVIDERS: ATTEND Internal Medicine Cardiovascular Disease
DX: R07.89 Other chest pain (principal)
CPT/HCPCS: 78452; 93017; A9502

== ENCOUNTER 2020-12-26 19:55 | Emergency (ER) | payer MEDICARE, OTHER ==
[~2020-12-26] VITALS: Ht 170 cm; Wt 70.0 kg
[~2020-12-26 19:55] MED LIST changes: -CATHETER FLUSH 10 ML SYR IV PRN; -REGADENOSON 0.4 MG/5 ML SYR (LEXISCAN) IV ONE
[2020-12-26] MEDS ORDERED: NITROGLYCERIN 0.4 MG SL TABS BTL 25'S SL PRN (20:15)
[2020-12-26] MEDS ORDERED: ASPIRIN 81 MG CHEW (CHILDREN'S ASA) PO ONE (20:15)
[2020-12-26] MEDS ORDERED: PANTOPRAZOLE 40 MG (PROTONIX) VIAL IV ONE (20:15)
[2020-12-26 20:27] LABS: BASOPHILS # (AUTO) 0.1 10^3/uL (0.0-0.1); BASOPHILS % (AUTO) 1 % (0-10); EOSINOPHILS % (AUTO) 0 % (0-10); HEMATOCRIT 41 % (35-52); HEMOGLOBIN 14.1 g/dL (11.5-16.0); LYMPHOCYTES # (AUTO) 2.2 10^3/uL (1.0-4.0); LYMPHOCYTES % (AUTO) 30 % (12-44); MEAN CORPUSCULAR HEMOGLOBIN 31 pg (25-34); MEAN CORPUSCULAR HGB CONC 35 g/dL (32-36); MEAN CORPUSCULAR VOLUME 88 fL (80-99); MEAN PLATELET VOLUME 9.1 fL (9.0-12.2); MONOCYTES # (AUTO) 0.7 10^3/uL (0.0-1.0); MONOCYTES % (AUTO) 9 % (0-12); NEUTROPHILS # (AUTO) 4.4 10^3/uL (1.8-7.8); NEUTROPHILS % (AUTO) 59 % (42-75); PLATELET COUNT 271 10^3/uL (130-400); WHITE BLOOD COUNT 7.4 10^3/uL (4.3-11.0)
[2020-12-26 20:34] LABS: PROTHROMBIN TIME PATIENT 13.2 SEC (12.2-14.7)
--- NOTE | 2020-12-26 20:41 | ED Chest Pain ---
General Chief Complaint: Chest Pain Stated Complaint: CHEST PAIN / SOA Nursing Triage Note: Pt here for chest tightness that started this afternoon while at rest. Seen for this previously this wk for same cc. Seen by lugger and had stress test and echo. Nursing Sepsis Screen: No Definite Risk Source: patient History of Present Illness Date Seen by Provider: Dec 26, 2020 Time Seen by Provider: 19:55 Initial Comments PT ARRIVES VIA POV FROM HOME C/O CHEST PAIN/ TIGHTNESS STATES SYMPTOMS FOR THE LAST 2 WEEKS. PAIN COMES AND GOES, STARTED AROUND 1500 TODAY WHILE SITTING DOWN STATES SHE HAD BEEN OUT IN THE YARD, PICKING UP STICKS EARLIER, AND FELT FINE AND HAD NO SYMPTOMS OF ANY KIND DURING THAT ACTIVITY. PT STATES PAIN IS IN CENTER OF CHEST AND RATES PAIN 10/10 EARLIER, IS 5/10 NOW. NO RADIATION OF PAIN NOTHING WORSENS OR IMPROVES PAIN NO NAUSEA. STATES SHE HAD ACID REFLUX SYMPTOMS THIS MORNING AND TOOK GERD MEDICATION AND TUMS X 3-4 THIS AM, STATES NO RELIEF. NO SWEATS NO PALPITATIONS NO DIZZINESS OR SYNCOPE NO PALPITATIONS WAS SHORTNESS OF BREATH EARLIER AROUND 1630, BUT NOT NOW. STATES HER BLOOD PRESSURE WAS 198 SYSTOLIC 45 MINUTES AFTER SHE TOOK LOSARTAN THIS EVENING AT 1930. PT HAS HAD MULTIPLE RECENT VISITS HERE, WELL AT DR. ASH'S OFFICE AND HAS BEEN SEEN BY DR. HILARIO WELL PT HAD STRESS TEST 12/13/20 AND WAS NORMAL WITH EF OF 78% HAD ECHOCARDIOGRAM 12/12/20 AND WAS NORMAL, WITH EF 55-60% HAS FOLLOW UP WITH DR. HILARIO THIS Saturday12/29/20 NO FEVER OR RECENT ILLNESS HAD SECOND COVID-19 VACCINE 1 1/2 WEEKS AGO. PCP: DR. ASH DRYING MACHINE RECEIVER: DR. HILARIO Allergies and Home Medications Allergies Coded Allergies: No Known Drug Allergies (Unverified , 09/23/17) Home Medications Amlodipine Besylate 2.5 Mg Tablet, 2.5 MG PO DAILY, (Reported) Bisoprolol Fumarate/Hctz 1 Each Tablet, 1 EACH PO DAILY, (Reported) Calcium Carbonate 500 Mg Tablet, 500 MG PO DAILY, (Reported) Estradiol 2 Mg Tablet, 2 MG PO DAILY, (Reported) Isosorbide Dinitrate 30 Mg Tablet, 30 MG PO DAILY Prescribed by: YOBANY GORDON on 12/26/20 2020 Losartan Potassium 50 Mg Tablet, 50 MG PO DAILY, (Reported) Multivitamin 1 Each Tablet, 1 EACH PO DAILY, (Reported) [place] 3 Polyunsat Fatty Acids 1,000 Mg Cap, 1,000 MG PO DAILY, (Reported) Pravastatin Sodium 20 Mg Tablet, 20 MG PO DAILY, (Reported) Sucralfate 1 Gm Tablet, 1 GM PO QID Prescribed by: YOBANY GORDON on 12/26/20 1139 Patient Home Medication List Home Medication List Reviewed: Yes Review of Systems Review of Systems Constitutional: no symptoms reported; No chills, No diaphoresis, No dizziness, No fever EENTM: No Symptoms Reported Respiratory: See HPI, Shortness of Air Cardiovascular: See HPI, Chest Pain; Denies Edema, Denies Irregular Heart Rate, Denies Lightheadedness, Denies Palpitations, Denies Syncope Gastrointestinal: See HPI; Denies Abdominal Pain, Denies Nausea, Denies Vomiting; Other (GERD SYMPTOMS) Genitourinary: No Symptoms Reported Musculoskeletal: no symptoms reported; No back pain Skin: no symptoms reported Psychiatric/Neurological: No Symptoms Reported Endocrine: No Symptoms Reported Hematologic/Lymphatic: No Symptoms Reported Past Lrvkwwi-Mrukxf-Tmkamb Hx Past Med/Social Hx: Reviewed and Corrections made Patient Social History Alcohol Use: Denies Use Drug of Choice: DENIES Smoking Status: Never a Smoker 2nd Hand Smoke Exposure: No Recent Infectious Disease Expo: No Recent Hopitalizations: No Immunizations Up To Date Tetanus Booster (TDap): Unknown Date of Pneumonia Vaccine: Jul 30, 2016 Date of Influenza Vaccine: Jul 29, 2020 Seasonal Allergies Seasonal Allergies: No Past Medical History Surgeries: Yes (SEE BELOW) Gallbladder, Hysterectomy, Orthopedic, Tubal Ligation Respiratory: No Cardiac: Yes High Cholesterol, Hypertension Neurological: No Reproductive Disorders: No 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 Sexually Transmitted Disease: No HIV/AIDS: No Gastrointestinal: Yes Gastroesophageal Reflux, Diverticulosis, Polyps Musculoskeletal: Yes (FOOT PAIN) Arthritis Endocrine: No Loss of Vision: Bilateral Hearing Impairment: Denies Cancer: No Psychosocial: No Integumentary: No Blood Disorders: No Adverse Reaction/Blood Tranf: No (N/A) Family Medical History PAST SURGICAL HISTORY: -BILATERAL TUBAL LIGATION -CHOLECYSTECTOMY 03/2015 -LAVH/BSO/ANTERIOR REPAIR 07/2007 -RIGHT FOOT SURGERY/BUNIONECTOMY 09/2016 -LEFT FOOT SURGERY/ BUNIONECTOMY 09/2017 -COLONOSCOPES--LAST ONE 11/04/20--DIVERTICULAR DISEASE NOTED. ONE POLYP REMOVED. STRESS TEST 12/13/20--NORMAL, EF 78% Physical Exam Vital Signs Vital Signs - First Documented 12/26/20 20:08 Temp 36.8 Pulse 62 Resp 18 B/P (MAP) 178/93 (121) Pulse Ox 99 O2 Delivery Room Air Capillary Refill : Less Than 3 Seconds Height, Weight, BMI Height: 5'6.00" Weight: 159lbs. 7.0oz. 72.346894pv; 24.00 BMI Method:Stated General Appearance: No Apparent Distress, WD/WN, Other (FLAT AFFECT) Neck: Full Range of Motion, Normal Inspection, Non Tender, Supple; No Carotid Bruit, No JVD Respiratory: Chest Non Tender, Normal Breath Sounds, No Accessory Muscle Use, No Respiratory Distress Cardiovascular: Regular Rate, Rhythm, No Edema, No JVD, No Murmur, Normal Peripheral Pulses Gastrointestinal: Normal Bowel Sounds, No Organomegaly, No Pulsatile Mass, Non Tender, Soft Extremity: Normal Capillary Refill, Normal Inspection, Normal Range of Motion, Non Tender, No Calf Tenderness, No Pedal Edema Neurologic/Psychiatric: Alert, Oriented x3, No Motor/Sensory Deficits, wound treatment rn II-XII Norm as Tested Skin: Normal Color, Warm/Dry Progress/Results/Core Measures Results/Orders Lab Results Laboratory Tests Test 12/26/20 20:16 12/26/20 22:48 Range/Units White Blood Count 7.4 4.3-11.0 10^3/uL Red Blood Count 4.63 3.80-5.11 10^6/uL Hemoglobin 14.1 11.5-16.0 g/dL Hematocrit 41 35-52 % Mean Corpuscular Volume 88 80-99 fL Mean Corpuscular Hemoglobin 31 25-34 pg Mean Corpuscular Hemoglobin Concent 35 32-36 g/dL Red Cell Distribution Width 12.7 10.0-14.5 % Platelet Count 271 130-400 10^3/uL Mean Platelet Volume 9.1 9.0-12.2 fL Immature Granulocyte % (Auto) 1 % Neutrophils (%) (Auto) 59 42-75 % Lymphocytes (%) (Auto) 30 12-44 % Monocytes (%) (Auto) 9 0-12 % Eosinophils (%) (Auto) 0 0-10 % Basophils (%) (Auto) 1 0-10 % Neutrophils # (Auto) 4.4 1.8-7.8 10^3/uL Lymphocytes # (Auto) 2.2 1.0-4.0 10^3/uL Monocytes # (Auto) 0.7 0.0-1.0 10^3/uL Eosinophils # (Auto) 0.0 0.0-0.3 10^3/uL Basophils # (Auto) 0.1 0.0-0.1 10^3/uL Immature Granulocyte # (Auto) 0.0 0.0-0.1 10^3/uL Prothrombin Time 13.2 12.2-14.7 SEC INR Comment 1.0 0.8-1.4 Activated Partial Thromboplast Time 33 24-35 SEC Sodium Level 142 135-145 MMOL/L Potassium Level 3.1 L 3.6-5.0 MMOL/L Chloride Level 104 98-107 MMOL/L Carbon Dioxide Level 24 21-32 MMOL/L Anion Gap 14 5-14 MMOL/L Blood Urea Nitrogen 16 7-18 MG/DL Creatinine 0.83 0.60-1.30 MG/DL Estimat Glomerular Filtration Rate > 60 BUN/Creatinine Ratio 19 Glucose Level 121 H 70-105 MG/DL Calcium Level 9.4 8.5-10.1 MG/DL Corrected Calcium 9.2 8.5-10.1 MG/DL Magnesium Level 1.4 L 1.6-2.4 MG/DL Total Bilirubin 0.6 0.1-1.0 MG/DL Aspartate Amino Transf (AST/SGOT) 26 5-34 U/L Alanine Aminotransferase (ALT/SGPT) 43 0-55 U/L Alkaline Phosphatase 76 40-136 U/L Total Creatine Kinase 117 29-168 U/L Creatine Kinase MB 1.5 <6.6 NG/ML Myoglobin 55.8 10.0-92.0 NG/ML Troponin I < 0.028 < 0.028 <0.028 NG/ML B-Type Natriuretic Peptide 99.9 <100.0 PG/ML Total Protein 7.2 6.4-8.2 GM/DL Albumin 4.3 3.2-4.5 GM/DL Amylase Level 50 25-125 U/L Lipase 27 8-78 U/L My Orders Orders - EVAN,YOBANY K DO Ed Iv/Invasive Line Start (12/26/20 20:06) Ekg Tracing (12/26/20 20:06) Monitor-Rhythm Ecg Trace Only (12/26/20 20:06) Amylase (12/26/20 20:06) BNP (12/26/20 20:06) Cbc With Automated Diff (12/26/20 20:06) Comprehensive Metabolic Panel (12/26/20 20:06) Creatine Kinase (12/26/20 20:06) Creatine Kinase Mb (12/26/20 20:06) Lipase (12/26/20 20:06) Magnesium (12/26/20 20:06) Protime With Inr (12/26/20 20:) Partial Thromboplastin Time (12/26/20 20:06) Myoglobin Serum (12/26/20 20:06) Troponin I (12/26/20 20:) Chest 1 View, Ap/Pa Only (12/26/20 20:06) Nitroglycerin 0.4 Mg Btl 25's (Nitrostat (12/26/20 20:15) Aspirin Chewable Tablet (Baby Aspirin Ch (12/26/20 20:15) Pantoprazole Injection (Protonix Injecti (12/26/20 20:15) Magnesium 1 Gm/100 Ml Ivpb (Magnesium Cheung (12/26/20 21:00) Magnesium Oxide Tablet (Mag Ox Tablet) (12/26/20 21:00) Ct Angio Chest W (12/26/20 20:49) Iohexol Injection (Omnipaque 350 Mg/Ml 1 (12/26/20 21:00) Received Contrast (Hold Metformin- Contr (12/26/20 21:00) Sodium Chloride Flush (Catheter Flush Sy (12/26/20 21:00) Ns (Ivpb) (Sodium Chloride 0.9% Ivpb Bag (12/26/20 21:00) Ekg Tracing (12/26/20 22:30) Troponin I (12/26/20 22:30) Medications Given in ED Vital Signs/I&O 12/26/20 12/26/20 12/26/20 12/26/20 20:08 20:28 20:31 21:36 Temp 36.8 Pulse 62 66 57 Resp 18 18 B/P (MAP) 178/93 (121) 151/66 (94) 141/70 (93) Pulse Ox 99 98 O2 Delivery Room Air Room Air Room Air Room Air 12/26/20 12/26/20 22:19 23:44 Pulse 56 72 Resp 18 18 B/P (MAP) 143/63 (89) 168/72 Pulse Ox 96 98 O2 Delivery Room Air Room Air 12/27/20 00:00 Intake Total 100 ml Balance 100 ml Blood Pressure Mean: 94 Progress Progress Note : Progress Note GIVEN ASPIRIN PAIN ALREADY STARTING TO IMPROVE ON IT'S OWN, GIVEN NTG X 1 AND PAIN IS NOW COMPLETELY GONE. GIVEN PROTONIX FOR GERD SYMPTOMS NO SYMPTOMS FOR REMAINDER OF ER STAY PT OBSERVED IN ER AND REPEAT TROPONIN AND EKG DONE AND BOTH NORMAL/UNCHANGED. Initial ECG Impression Date: Dec 26, 2020 Initial ECG Impression Time: 20:04 Initial ECG Rate: 64 Initial ECG Rhythm: Normal Sinus (PVC'S ) EKG : EKG Time: 22:36 Rate: 56 ECG Comparisson: Unchanged Diagnostic Imaging Comments CXR--PER RADIOLOGIST REPORT AT 2047 Heart size and pulmonary vascularity are normal. Lungs are clear. There are no effusions or pneumothoraces. IMPRESSION: Negative chest. CT CHEST ANGIOGRAM--PER RADIOLOGIST REPORT AT 2136 FINDINGS: The lungs are clear. There are no effusions or pneumothoraces. There are no pulmonary emboli seen. There is no right ventricular strain. Aorta is unremarkable. There is no hilar or mediastinal lymphadenopathy. IMPRESSION: Negative CTA chest. Reviewed: Reviewed by Me Departure Communication (Admissions) 2137--SPOKE WITH DR. ASH. SHE ADVISES TO INCREASE PROTONIX, WILL ADD CARAFATE AND START ON ISOSORBIDE 30 MG. PT HAS FOLLOW UP APPOINTMENT WITH DR. HILARIO THIS Saturday12/29/20 Impression Primary Impression: Chest pain Additional Impression: HTN (hypertension) Disposition: 01 HOME, SELF-CARE Condition: Improved Departure-Patient Inst. Referrals: PIETRO ASH MD (PCP/Family) Primary Care Physician Patient Instructions: Chest Pain (DC), DASH Diet, High Blood Pressure (DC) Add. Discharge Instructions: CONTINUE YOUR CURRENT MEDICATIONS PRESCRIBED, EXCEPT INCREASE YOUR PROTONIX TO TWICE A DAY FOLLOW UP WITH DR. HILARIO THIS SATURDAY SCHEDULED All discharge instructions reviewed with patient and/or family. Voiced understanding. Scripts Isosorbide Dinitrate (Isosorbide Dinitrate) 30 Mg Tablet 30 MG PO DAILY, #10 TAB Prov: YOBANY GORDON DO 12/26/20 Sucralfate (Carafate) 1 Gm Tablet 1 GM PO QID, #60 TAB Prov: YOBANY GORDON DO 12/26/20 YOBANY GORDON DO Dec 26, 2020 20:41
[2020-12-26 20:42] LABS: ALANINE AMINOTRANSFERASE 43 U/L (0-55); ALBUMIN 4.3 GM/DL (3.2-4.5); ALKALINE PHOSPHATASE 76 U/L (40-136); AMYLASE 50 U/L (25-125); BILIRUBIN,TOTAL 0.6 MG/DL (0.1-1.0); BUN/CREATININE RATIO 19; CALCIUM 9.4 MG/DL (8.5-10.1); CARBON DIOXIDE 24 MMOL/L (21-32); CHLORIDE 104 MMOL/L (98-107); CREATINE KINASE 117 U/L (29-168); CREATININE SERUM 0.83 MG/DL (0.60-1.30); GFR ESTIMATED > 60; GLUCOSE 121 MG/DL (70-105); LIPASE 27 U/L (8-78); MAGNESIUM 1.4 MG/DL (1.6-2.4); POTASSIUM 3.1 MMOL/L (3.6-5.0); SODIUM 142 MMOL/L (135-145); TOTAL PROTEIN 7.2 GM/DL (6.4-8.2)
--- NOTE | 2020-12-26 20:44 | Diagnostic Imaging Report ---
INDICATION: Chest pain EXAM: Portable chest at 8:38 PM Heart size and pulmonary vascularity are normal. Lungs are clear. There are no effusions or pneumothoraces. IMPRESSION: Negative chest. Dictated by: Dictated on workstation # [id number]
[2020-12-26 20:49] LABS: CREATINE KINASE MB 1.5 NG/ML (<6.6)
[2020-12-26] MEDS ORDERED: MAGNESIUM OXIDE (MAG-OX)400 MG TAB PO ONE (21:00)
[2020-12-26] MEDS ORDERED: IOHEXOL 350 MG/ML 100 ML (OMNIPAQUE 350) VIAL IV ONE (21:00)
[2020-12-26] MEDS ORDERED: MAGNESIUM 1 GM/100 ML IVPB 100 ML IV ONE (21:00)
[2020-12-26] MEDS ORDERED: CATHETER FLUSH 10 ML SYR IV PRN (21:00)
[2020-12-26] MEDS ORDERED: HOLD METFORMIN - RECEIVED CONTRAST 20 ML VIAL IV SCH (21:00)
[2020-12-26] MEDS ORDERED: NS 100 ML (IVPB) BAG IV ONE (21:00)
--- NOTE | 2020-12-26 21:27 | Diagnostic Imaging Report ---
PROCEDURE: CT angiography of the chest with contrast. TECHNIQUE: Multiple contiguous axial images were obtained through the chest after uneventful bolus administration of intravenous contrast. 3D reconstructed CTA MIP acquisitions were also performed. Auto Exposure Controls were utilized during the CT exam to meet ALARA standards for radiation dose reduction. INDICATION: Shortness of breath, chest pain. FINDINGS: The lungs are clear. There are no effusions or pneumothoraces. There are no pulmonary emboli seen. There is no right ventricular strain. Aorta is unremarkable. There is no hilar or mediastinal lymphadenopathy. IMPRESSION: Negative CTA chest. Dictated by: Dictated on workstation # [id number]
[2020-12-26] MEDS ORDERED: ISOS30TA8 PO (23:24)
[2020-12-26] MEDS ORDERED: SUCR1TAB36 PO (23:24)
[2020-12-26 23:44] VITALS: BP 168/72
== END 2020-12-26 23:45 | disposition home or self-care (01) ==
LOC: EDUNIT# 19:55 → ER 19:56
DX: R07.9 Chest pain, unspecified (principal); I10 Essential (primary) hypertension; E78.00 Pure hypercholesterolemia, unspecified; K21.9 Gastro-esophageal reflux disease without esophagitis
CPT/HCPCS: 36415; 71045; 71275; 80053; 82150; 82550; 82553; 83690; 83735; 83874; 83880; 84484; 85025; 85610; 85730; 93005; 93041; 96374; 96375

== ENCOUNTER → 2021-01-02 | Outpatient (CLI) | payer MEDICARE, OTHER ==
[~2021-01-02] MED LIST changes: +ISOS30TA8 PO; +SUCR1TAB36 PO
== END ==
LOC: CARD 11:11
PROVIDERS: ATTEND Nurse Practitioner Family
DX: R00.2 Palpitations (principal)
CPT/HCPCS: 93225; 93226

== ENCOUNTER 2021-01-05 08:42 | Outpatient (CLI) | payer MEDICARE, OTHER ==
[2021-01-05] MEDS ORDERED: OMEP20TA33 PO (12:47)
[2021-01-06] MEDS ORDERED: PANT40TA2 PO (11:23)
[2021-01-06] MEDS ORDERED: NF-ESOM40C PO ×2 (13:04→13:05)
== END 2021-01-05 12:57 ==
LOC: PREOP 08:42
PROVIDERS: ATTEND Surgery
DX: Z01.812 Encounter for preprocedural laboratory examination (principal); K21.9 Gastro-esophageal reflux disease without esophagitis; Z20.822 Contact with and (suspected) exposure to COVID-19
CPT/HCPCS: 87635

== ENCOUNTER 2021-01-06 11:11 | Day surgery (SDC) | payer MEDICARE, OTHER ==
[2021-01-06] VITALS (13 sets, daily range): BP systolic 73–167; BP diastolic 39–74
[~2021-01-06] VITALS: Ht 167.6 cm; Wt 62.7 kg
[~2021-01-06 11:11] MED LIST changes: +OMEP20TA33 PO
[2021-01-06] MEDS ORDERED: NS IV 500 ML 500 ML ONE (11:18)
--- NOTE | 2021-01-06 11:21 | Conscious Sedation/ASA ---
Conscious Sedation Pre-Proced Time 11:15 ASA Score 2 For ASA 3 and 4: Consider anesthesia and medical clearance. Also, for patients with a history of failed moderate sedation consider anesthesia. Airway Lungs Heart ASA score ASA 1: a normal healthy patient ASA 2: a patient with a mild systemic disease (mid diabetes, controlled hypertension, obesity ASA 3: a patient with a severe systemic disease that limits activity (angina, COPD, prior Myocardial infarction) ASA 4: a patient with an incapacitating disease that is a constant threat to life (CHF, renal failure) ASA 5: a moribund patient not expected to survive 24 hrs. (ruptured aneurysm) ASA 6: a declared brain- patient whose organs are being harvested. For emergent operations, add the letter E after the classification Mallampati Classification Grade 2 Sedation Plan Analgesia, Amnesia, Plan communicated to team members, Discussed options with patient/fam, Discussed risks with patient/fam The patient is an appropriate candidate to undergo the planned procedure, sedation, and anesthesia. The patient immediately re-assessed prior to indication. STARLA MERCEDES MD Jan 06, 2021 11:21
--- NOTE | 2021-01-06 11:22 | Progress Note-Pre Operative ---
Pre-Operative Progress Note H&P Reviewed The H&P was reviewed, patient examined and no changes noted. Date Seen by Provider: Jan 06, 2021 Time Seen by Provider: 11:15 Date H&P Reviewed: Jan 06, 2021 Time H&P Reviewed: 11:15 Pre-Operative Diagnosis: GERD/dys STARLA MERCEDES MD Jan 06, 2021 11:21
[2021-01-06] MEDS ORDERED: PANT40TA2 PO (11:23)
--- NOTE | 2021-01-06 11:23 | Discharge Inst-Surgical ---
D/C Lap Instructions-KIDO New, Converted, or Re-Newed RX: RX on Chart Follow Up Appt in 2 weeks Activity as tolerated High Fiber Diet 25g or more per day Avoid Alcohol, Caffeine, Spicy [place] and Acid foods. Drink 64 fluid oz or more of fluids per day. Symptoms to Report: Fever over 101 degree F, Nausea/Vomiting If any problems/questions: Contact your physician or go to Emergency Room STARLA MERCEDES MD Jan 06, 2021 11:23
[2021-01-06] MEDS ORDERED: ONDANSETRON 4 MG/2 ML (SDV) Z0FRAN IVP PRN (11:30)
[2021-01-06] MEDS ORDERED: morphine INJ 10 MG/ML 1ML (SYR OR VIAL) IVP PRN ×2 (11:30)
[2021-01-06] MEDS ORDERED: HYDROcodone/APAP 5 MG/325 MG (LORTAB) TAB PO PRN (11:30)
[2021-01-06] MEDS ORDERED: ACETAMINOPHEN 325 MG TABLET PO PRN (11:30)
[2021-01-06] MEDS ORDERED: fentaNYL INJ 100 MCG/2 ML AMP ONE (11:52)
[2021-01-06] MEDS ORDERED: MIDAZOLAM 5 MG/5 ML (VERSED) VIAL ONE (11:52)
[2021-01-06] MEDS ORDERED: LIDOCAINE JELLY 2% 6 ML SYRINGE ONE (11:52)
[2021-01-06] MEDS ORDERED: MIDAZOLAM 5 MG/5 ML (VERSED) VIAL IV ONE (12:00)
[2021-01-06] MEDS ORDERED: LIDOCAINE JELLY 2% 6 ML SYRINGE MM PRN (12:00)
[2021-01-06] MEDS ORDERED: HURRICAINE EXT TUBE (BENZOCAINE) XX PRN (12:00)
[2021-01-06] MEDS ORDERED: fentaNYL INJ 100 MCG/2 ML AMP IVP ONE (12:00)
[2021-01-06] MEDS ORDERED: NS IV 500 ML 500 ML IV PRN (12:00)
--- NOTE | 2021-01-06 12:57 | Progress Note-Post Operative ---
Post-Operative Progess Note Surgeon (s)/Human Services Professional (s) Surgeon STARLA MERCEDES MD Human Services Professional: none Pre-Operative Diagnosis GERD/dys Post-Operative Diagnosis reflux esophagitis(stage 2), mild distal esophageal stricture, small HH(2cm), moderate gastritis. Procedure & Operative Findings Date of Procedure 01/06/21 Procedure Performed/Findings EGD with bx and balloon dilatation Anesthesia Type cs Estimated Blood Loss Estimated blood loss (mL): minimal Specimens/Packing Specimens Removed ge jxn, antrum STARLA MERCEDES MD Jan 06, 2021 12:57
[2021-01-06] MEDS ORDERED: NF-ESOM40C PO ×2 (13:04→13:05)
--- NOTE | 2021-01-06 19:18 | OPERATIVE REPORT ---
DATE OF SERVICE: 01/06/2021 ATTENDING PRIMARY CARE PHYSICIAN: Kay Hernandez MD PREOPERATIVE DIAGNOSES: Gastroesophageal reflux disease, dysphagia. POSTOPERATIVE DIAGNOSES: Reflux esophagitis stage II, mild distal esophageal stricture, small hiatal hernia 2 cm in size, moderate gastritis. No distal obstructions. PROCEDURE: EGD with biopsy and balloon dilatation. SURGEON: Starla Mercedes MD. ANESTHESIA: Conscious sedation. ESTIMATED BLOOD LOSS: Minimal. FINDINGS: Reflux esophagitis stage II, mild distal esophageal stricture, small hiatal hernia 2 cm in size, moderate gastritis. No distal obstructions. DISPOSITION: The patient tolerated the procedure well. INDICATIONS: The patient is a 70-year-old female known to us. She reports she has had a history of gastroesophageal reflux disease; however, more recently has felt chest tightness and shortness of breath and also feels a globus sensation upon swallowing in the back of her throat. Due to this discomfort, she has lost 12 pounds as well. She does not report any linda episodes of nausea and vomiting as well as no hematemesis, no coffee ground emesis. DESCRIPTION OF PROCEDURE: The patient was brought to the endoscopy suite, laid in the left lateral decubitus position. After adequate IV pain and sedative medications and conscious sedation anesthesia, the mouthpiece was applied. The endoscope was placed in the mouth, visualizing the pharynx and hypopharyngeal region. Vocal cords, epiglottis and vallecula identified and appeared to be normal. The endoscope was then gently intubated into the esophageal opening and esophagus insufflated. The endoscope was then advanced through the first, second and third portions of esophagus at the level of the GE junction, reflux esophagitis stage II identified as well as a mild distal esophageal stricture and Schatzki's ring identified. A biopsy was taken with forceps with visualization of good hemostasis. The endoscope was then advanced in the stomach and endoscope retroflexed, visualizing a small hiatal hernia approximately 2 cm in size. There was a moderate severity gastritis more focused towards antrum. No formal ulcerations, polyps, or any neoplasms. A biopsy was taken of the antrum to rule out H. pylori with visualization of good hemostasis. The endoscope was then advanced to the pylorus and the first and second portion of the duodenum, which appeared normal with no distal obstructions. The endoscope was then slowly withdrawn. We then proceeded with balloon dilatation of distal esophageal stricture and balloon was placed in the stomach and pulled back to the area of the stricture. We first proceeded to 2 and then 4, then 6 atmospheres of pressure with moderate resistance or 20 mm in luminal diameter and left this insufflated for 60 seconds. The balloon was then desufflated with visualization of good hemostasis as well as no mucosal tears. Endoscope was then slowly withdrawn while taking a second look and suctioning of residual air with no additional findings. The patient tolerated the procedure well. We will have her proceed with the necessary lifestyle and diet accommodation including small and more frequent meals, avoiding eating at night as well as head elevation while lying supine. She also needs to avoid caffeinated beverages, spicy, greasy and acidic foods and we will also proceed with a trial of esomeprazole 40 mg daily. Job ID: [id number] DocumentID: [id number] Dictated Date: 01/06/2021 12:39:11 [employer] Date: 01/06/2021 19:17:10 Dictated By: STARLA MERCEDES MD
== END 2021-01-06 13:45 | disposition home or self-care (01) ==
LOC: ENDO 11:11
PROVIDERS: ATTEND Surgery
DX: K29.50 Unspecified chronic gastritis without bleeding (principal); K21.00 Gastro-esophageal reflux disease with esophagitis, without bleeding; K22.2 Esophageal obstruction; K44.9 Diaphragmatic hernia without obstruction or gangrene; I10 Essential (primary) hypertension; E78.00 Pure hypercholesterolemia, unspecified; Z79.82 Long term (current) use of aspirin; Z79.899 Other long term (current) drug therapy; Z90.710 Acquired absence of both cervix and uterus
CPT/HCPCS: 88305; 88342

== ENCOUNTER → 2022-06-05 | Outpatient (CLI) | payer MEDICARE, OTHER ==
[~2022-06-05] MED LIST changes: +ESTR2TAB3 PO; +NF-ESOM40C PO; +PANT40TA2 PO
--- NOTE | 2022-06-05 12:53 | Diagnostic Imaging Report ---
INDICATION: Postmenopausal screening COMPARISON: Baseline FINDINGS: AP Spine L1-L4: [BMD (g/cm2): 1.219] [T-Score: 0.2] [Z-Score: 1.8] [BMD Previous: NA] [BMD % Change: NA] LT Hip Neck: [BMD (g/cm2): 0.858] [T-Score: -1.3] [Z-Score: 0.5] LT Hip Total: [BMD (g/cm2):1.057] [T-Score:0.4] [Z-Score: 1.9] [BMD Previous: NA] [BMD % Change: NA] RT Hip Neck: [BMD (g/cm2):0.884] [T-Score:-1.1] [Z-Score:0.7] RT Hip Total: [BMD (g/cm2):0.992] [T-score:-0.1] [Z-Score:1.4] [BMD Previous:NA] [BMD % Change:NA] *Indicates significant change from prior examination based on 95% confidence level. World Health Organization criteria for BMD interpretation classify patients as Normal (T-score at or above -1.0), Osteopenic (T-score between -1.0 and -2.5) or Osteoporotic (T-score at or below -2.5). LIMITATIONS AND MODIFICATION: None. FRACTURE RISK (FRAX SCORE): The ten year probability of (%): Major Osteoporotic Fracture: [NA] Hip Fracture: [NA] IMPRESSION: 1. Osteopenia (Low bone mass). 2. Baseline examination. 3. See below National Osteoporosis Foundation guidelines on when to potentially initiate pharmacologic therapy. Based on the National Osteoporosis Foundation Guidelines, pharmacologic treatment should be initiated in any of the following, unless clinical conditions suggest otherwise: * Any patient with prior fragility fracture of the hip or vertebrae. A spine fracture indicates 5X risk for subsequent spine fracture and 2X risk for subsequent hip fracture. * Osteoporosis (T-score <-2.5). * Postmenopausal women and men age 50 and older with low bone mass/osteopenia (T-score between -1.0 and -2.5) by DXA and 10-year major osteoporotic fracture greater than 20% or a 10-year probability of hip fracture greater than 3%. These fracture risks are supplied above in the FRAX score, if applicable. * Clinician judgement and/or patient preferences may indicate treatment for people with 10-year fracture probabilities above or below these levels. Dictated by: Dictated on workstation # [id number]
== END ==
LOC: RAD 11:30
PROVIDERS: ATTEND Nurse Practitioner Family
DX: Z13.820 Encounter for screening for osteoporosis (principal); M85.80 Other specified disorders of bone density and structure, unspecified site; Z78.0 Asymptomatic menopausal state
CPT/HCPCS: 77080

== ENCOUNTER → 2022-10-26 | Outpatient (CLI) | payer MEDICARE ==
--- NOTE | 2022-10-26 11:55 | Diagnostic Imaging Report ---
INDICATION: Abdominal pain with nausea and diarrhea x2 weeks KUB 9:52 AM Bowel gas pattern is normal. There are no pathologic masses or calcifications. IMPRESSION: Unremarkable abdomen Dictated by: Dictated on workstation # [id number]
== END ==
LOC: RAD 09:34
PROVIDERS: ATTEND Nurse Practitioner Family
DX: R10.9 Unspecified abdominal pain (principal); R19.7 Diarrhea, unspecified; R11.0 Nausea
CPT/HCPCS: 74018

== ENCOUNTER → 2023-01-31 | Outpatient (CLI) | payer MEDICARE ==
[~2023-01-31] VITALS: Ht 167.6 cm; Wt 66.8 kg
[~2023-01-31] MED LIST changes: +LIDOCAINE 1% INJ 10 ML VIAL INJ ONE; +LIDOCAINE 1% INJ 10 ML VIAL ONE
--- NOTE | 2023-01-31 16:15 | Diagnostic Imaging Report ---
INDICATION: Left breast calcifications. Patient presents for stereotactic biopsy. PROCEDURE: The patient was brought to the stereotactic suite and placed in the chair in a sitting upright position. The left breast was positioned lateral medial. The cluster of microcalcifications in the anterior to mid depth and upper portion of left breast were stereotactically targeted. All images were viewed on a dedicated workstation. The lateral left breast was then prepped and draped in the usual sterile fashion. Small amount of 1% lidocaine was utilized for local anesthesia. An 8 gauge needle was advanced from a lateral medial approach and placed per stereotactic coordinates. A total of four core biopsies were obtained with the vacuum-assisted device. A specimen radiograph does demonstrate multiple calcifications within the specimen. Marker clip was then deployed. The needle was removed and hemostasis was obtained. 2D, CC and ML mammography was then performed to evaluate clip placement. Images demonstrate the clip just medial to the cluster in the anterior to mid depth of the left breast. Patient tolerated the procedure well. IMPRESSION: Successful stereotactic biopsy of a cluster of microcalcifications in the upper mid left breast, utilizing the vacuum-assisted device. Pathology results are currently pending. Dictated by: Dictated on workstation # [id number]
--- NOTE | 2023-01-31 17:24 | Diagnostic Imaging Report ---
INDICATION: Left breast calcifications. Patient presents for stereotactic biopsy. PROCEDURE: Patient was brought to the stereotactic suite and placed in a chair in a sitting upright position. The left breast was positioned lateral medial. The cluster of microcalcifications in the far posterior and superior aspect of the left breast were stereotactically targeted. All images were viewed on a dedicated workstation. The lateral left breast was then prepped and draped in the usual sterile fashion. A small amount of 1% lidocaine was utilized for local anesthesia. An 8 gauge vacuum-assisted needle was advanced and placed per stereotactic coordinates. A total of four core biopsies were obtained with the vacuum-assisted device. A specimen radiograph was obtained demonstrating numerous calcifications within the sample. A marker clip was then deployed. The needle was removed and hemostasis was obtained. Patient tolerated the procedure well. 2D, CC and ML mammography was performed postprocedure to evaluate clip placement. Images demonstrate a clip adjacent to the cluster in the far posterior left breast. IMPRESSION: Successful stereotactic biopsy of the cluster of microcalcifications in the far posterior and upper left breast, utilizing the vacuum-assisted device. Pathology results are currently pending. Dictated by: Dictated on workstation # [id number]
== END ==
LOC: RAD 12:14
PROVIDERS: ATTEND Nurse Practitioner Family
DX: R92.0 Mammographic microcalcification found on diagnostic imaging of breast (principal)
CPT/HCPCS: 19081; 19082; A4648